=== PATIENT | male | born 1975 ===

== ENCOUNTER 2018-08-17 22:09 | Inpatient (IN) | payer OTHER ==
[~2018-08-17] VITALS: Ht 167.6 cm; Wt 95.3 kg
[2018-08-17] MEDS ORDERED: IRBESARTAN-HCT1 EACH (22:47)
[2018-08-17] MEDS ORDERED: EFFEXOR XR150 MG (22:47)
[2018-08-17] MEDS ORDERED: ATIVAN0.5 M1 (22:48)
[2018-08-17] MEDS ORDERED: LAMOTRIGINE OD100 MG (22:48)
[2018-08-20] MEDS ORDERED: METRONIDAZOLE500 MG PO (08:42)
[2018-08-20] MEDS ORDERED: OMEPRAZOLE40 MG PO (08:42)
[2018-08-20] MEDS ORDERED: ACIDOPHILUS1 EAC5 PO (08:42)
[2018-08-20] MEDS ORDERED: CIPRO500 MG PO (08:42)
== END 2018-08-20 10:58 | disposition home or self-care (01) | DRG 392 ==
LOC: ER 22:09 → MEDI 08-18 09:00
PROC: BW25ZZZ Computerized Tomography (CT Scan) of Chest, Abdomen and Pelvis (ICD-10-PCS; principal; 2018-08-18)
DX: K57.32 Diverticulitis of large intestine without perforation or abscess without bleeding (principal)

== ENCOUNTER 2018-10-05 03:30 | Emergency (ER) | payer OTHER ==
[~2018-10-05] VITALS: Ht 167.6 cm; Wt 96.2 kg
[~2018-10-05 03:30] MED LIST: ACIDOPHILUS1 EAC5 PO; ATIVAN0.5 M1; CIPRO500 MG PO; EFFEXOR XR150 MG; IRBESARTAN-HCT1 EACH; LAMOTRIGINE OD100 MG; METRONIDAZOLE500 MG PO; OMEPRAZOLE40 MG PO
[2018-10-05] MEDS ORDERED: PEPCID AC20 MG PO (08:03)
[2018-10-05] MEDS ORDERED: INTESTINEX680 M1 PO (08:03)
[2018-10-05] MEDS ORDERED: CIPRO500 MG PO (08:03)
[2018-10-05] MEDS ORDERED: KETO10TA2 PO (08:03)
[2018-10-05] MEDS ORDERED: METRONIDAZOLE500 MG PO (08:03)
[2018-10-05] MEDS ORDERED: LEVSIN/SL0.125 MG SL (08:03)
== END 2018-10-05 10:24 | disposition home or self-care (01) ==
LOC: ER 03:30
DX: K57.90 Diverticulosis of intestine, part unspecified, without perforation or abscess without bleeding (principal)